=== PATIENT | male | born 1970 | race African-American/Black ===

== ENCOUNTER 2019-03-28 17:01 | Emergency (ER) | payer BC ==
--- NOTE | 2019-03-28 17:59 | EDM.PDOC ---
ED HPI GENERAL MEDICAL PROBLEM - General Chief Complaint: General Stated Complaint: MOUTH INFECTION Time Seen by Provider: 03/28/19 17:55 Source of Information: Reports: Patient History Limitations: Reports: No Limitations - History of Present Illness INITIAL COMMENTS - FREE TEXT/NARRATIVE: Patient is a 48-year-old male who is complaining of having left upper abdominal pain that is been going on for several days but getting worse. Patient denies any swelling to his face. Patient is sensitive on cold and is chewing on the side. He states he will not be able to see a dentist until he goes home in approximately 2 weeks. Is any fever or chills. Onset: Unknown/Unsure Duration: Getting Worse Location: Reports: Face Quality: Reports: Ache, Throbbing Severity: Moderate Improves with: Reports: None Worsens with: Reports: Cold Therapy, Eating Associated Symptoms: Reports: No Other Symptoms left side dental pain Pain Score (Numeric/FACES): 10 - Related Data Allergies Allergy/AdvReac Type Severity Reaction Status Date / Time No Known Allergies Allergy Verified 03/28/19 17:22 Home Meds: Home Meds . [No Known Home Meds] 03/28/19 [History] Past Medical History - Past Health History Medical/Surgical History: Denies Medical/Surgical History Social & Family History - Family History Family Medical History: Noncontributory - Tobacco Use Smoking Status *Q: Never Smoker - Recreational Drug Use Recreational Drug Use: No ED ROS GENERAL - Review of Systems Review Of Systems: See Below Constitutional: Reports: No Symptoms HEENT: Reports: Dental Pain Respiratory: Reports: No Symptoms Cardiovascular: Reports: No Symptoms GI/Abdominal: Reports: No Symptoms Skin: Reports: No Symptoms Neurological: Reports: No Symptoms Psychiatric: Reports: No Symptoms ED EXAM, GENERAL - Physical Exam Exam: See Below Exam Limited By: No Limitations General Appearance: Alert, No Apparent Distress Throat/Mouth: Dysphagia Head: Atraumatic, Normocephalic Neck: Normal Inspection Respiratory/Chest: No Respiratory Distress Neurological: Alert, Oriented Psychiatric: Normal Affect Skin Exam: Warm, Dry Course - Vital Signs Last Recorded V/S: Last Vital Signs Temp 35.9 C 03/28/19 17:22 Pulse 87 03/28/19 17:22 Resp 18 03/28/19 17:22 BP 141/78 H 03/28/19 17:22 Pulse Ox 95 03/28/19 17:22 Departure - Departure Time of Disposition: 17:58 Disposition: Home, Self-Care 01 Condition: Good Clinical Impression: Periapical abscess - Discharge Information Instructions: Dental Abscess, [id number] Referrals: Divya Vinson MD [Primary Care Provider] - Additional Instructions: Naprosyn with meals. Clindamycin as prescribed. Follow-up with dentist as soon as possible. Return to ER if worse. Care Plan Goals: The following information is given to patients seen in the emergency department who are being discharged to home. This information is to outline your options for follow-up care. We provide all patients seen in our emergency department with a follow-up referral. The need for follow-up, as well as the timing and circumstances, are variable depending upon the specifics of your emergency department visit. If you don't have a primary care physician on staff, we will provide you with a referral. We always advise you to contact your personal physician following an emergency department visit to inform them of the circumstance of the visit and for follow-up with them and/or the need for any referrals to a consulting specialist. The emergency department will also refer you to a specialist when appropriate. This referral assures that you have the opportunity for follow-up care with a specialist. All of these measure are taken in an effort to provide you with optimal care, which includes your follow-up. Under all circumstances we always encourage you to contact your private physician who remains a resource for coordinating your care. When calling for follow-up care, please make the office aware that this follow-up is from your recent emergency room visit. If for any reason you are refused follow-up, please contact the [facility] Emergency Department at and asked to speak to the emergency department charge nurse. Sepsis Event Note - Evaluation Sepsis Screening Result: No Definite Risk - Focused Exam Vital Signs: Vital Signs Temp Pulse Resp BP Pulse Ox 03/28/19 17:22 35.9 C 87 18 141/78 H 95 Date Exam was Performed: 03/28/19 Time Exam was Performed: 17:55
== END 2019-03-28 18:15 | disposition home or self-care (01) ==
LOC: MW.ED 17:01
DX: K04.7 Periapical abscess without sinus (principal)
CPT/HCPCS: 99282